=== PATIENT | female | born 1985 | race Caucasian/White ===

== ENCOUNTER 2021-05-07 06:04 | Day surgery (SDC) | payer BC ==
[2021-04-30 16:52] LABS: BASOPHILS # (AUTO) 0.1 X10'3 (0-0.2); BASOPHILS % (AUTO) 1.3 % (0-1); EOSINOPHILS # (AUTO) 0.3 X10'3 (0-0.9); EOSINOPHILS % (AUTO) 3.5 % (0-6); LYMPHOCYTES # (AUTO) 2.2 X10'3 (1.1-4.8); LYMPHOCYTES % (AUTO) 29.8 % (21-51); MEAN CORPUSCULAR HEMOGLOBIN 26.8 PG (27.0-31.0); MEAN CORPUSCULAR HGB CONC 32.7 g/dL (33.0-36.5); MEAN CORPUSCULAR VOLUME 81.8 FL (78-98); MEAN PLATELET VOLUME 9.1 FL (7.4-10.4); MONOCYTES # (AUTO) 0.5 X10'3 (0-0.9); NEUTROPHILS # (AUTO) 4.3 X10'3 (1.8-7.7); NEUTROPHILS % (AUTO) 58.4 % (42-75); PRE OP HEMATOCRIT 37.9 % (35.0-45.0); PRE OP HEMOGLOBIN 12.4 g/dL (12.0-16.0); PRE OP PLATELET COUNT 246 X10'3 (140-440); RED BLOOD COUNT 4.64 X10'6 (4.20-5.60); RED CELL DISTRIBUTION WIDTH 14.7 % (11.5-14.5)
[2021-04-30 17:00] LABS: PARTIAL THROMBOPLASTIN TIME 25 SECONDS (22-32); PRE OP PROTIME 10.3 SECONDS (9.0-12.0)
[2021-04-30 17:01] LABS: ALBUMIN/GLOBULIN RATIO 1.1 (1.1-1.5); ALKALINE PHOSPHATASE 56 IU/L (46-116); BLOOD UREA NITROGEN 10 MG/DL (7-18); BUN/CREATININE RATIO 11.8 (6.6-38.0); CALCIUM 8.6 MG/DL (8.5-10.1); CHLORIDE 106 MMOL/L (99-107); CREATININE 0.85 MG/DL (0.40-0.90); PRE OP ALT 26 U/L (30-65); PRE OP ANION GAP 10 (8-16); PRE OP AST 25 U/L (10-37); PRE OP BILIRUB, TOTAL 0.4 MG/DL (0.0-1.0); PRE OP GLUCOSE 104 MG/DL (70-104); PRE OP POTASSIUM 3.9 MMOL/L (3.4-5.1); PRE OP SODIUM 145 MMOL/L (135-145); TOTAL PROTEIN 7.5 G/DL (6.4-8.2); eGFR 77 ML/MIN
[2021-04-30 18:20] LABS: HCG SERUM QL NEGATIVE
[2021-05-07] VITALS (12 sets, daily range): BP systolic 117–139; BP diastolic 73–96
[~2021-05-07] VITALS: Ht 172.7 cm; Wt 91.8 kg
[~2021-05-07 06:04] MED LIST: ALBU8HFA; CETI-90 PO; albuterol 2.5 MG/3 ML nebule NEB PRN; diazepam 5mg tablet PO PRN; famotidine 20mg tablet PO ONE; ringers solution, lacted 1,000 ML IV SCH
[2021-05-07] MEDS: oxymetazoline 15 ML nasal spray NS PRN ×2 (06:55→12:45)
[2021-05-07] MEDS ORDERED: cocaine 4% topical solution 4ml bottle ONE (07:18)
[2021-05-07] MEDS ORDERED: methylPREDNISolone acetate 80mg/ml inj**IM only ONE (07:19)
[2021-05-07] MEDS ORDERED: LIDOcaine 1% W/epiNEPHrine 1:100,000 20ml vial ONE (07:19)
[2021-05-07] MEDS ORDERED: mupirocin 2% ointment 22GM ONE (07:20)
[2021-05-07] MEDS ORDERED: cefTAZidime 1gm inj ONE (07:20)
[2021-05-07] MEDS ORDERED: oxymetazoline 15 ML nasal spray NS ONE (07:21)
[2021-05-07] MEDS ORDERED: ondansetron/PF 4mg/2ml inj IV PRN (08:05)
[2021-05-07] MEDS ORDERED: labetalol 20mg/4ml (5mg/ml) syringe IV PRN (08:05)
[2021-05-07] MEDS ORDERED: ringers solution, lacted 1,000 ML IV SCH (08:05)
[2021-05-07] MEDS ORDERED: morphine 4 MG/ML inj SYRINge IV PRN (08:05)
[2021-05-07] MEDS ORDERED: morphine 2 MG/ML inj. syringe IV PRN (08:05)
[2021-05-07] MEDS ORDERED: fentaNYL/PF 50MCG/1 ML 2ML syringe IV PRN ×2 (08:05)
[2021-05-07] MEDS ORDERED: hydrALAZINE 20mg/ml inj. IV PRN (08:05)
[2021-05-07] MEDS ORDERED: sevoflurane 250ml liquid IH ONE (08:12)
[2021-05-07] MEDS ORDERED: fentaNYL/PF 50MCG/1 ML 2ML syringe ONE ×2 (08:14→09:06)
[2021-05-07] MEDS ORDERED: midazolam 1 mg/ML 2ml injection ONE (08:14)
[2021-05-07] MEDS ORDERED: ondansetron/PF 4mg/2ml inj ONE (08:26)
[2021-05-07] MEDS ORDERED: LIDOcaine 2% (20mg/ml) 5ml vial ONE (08:26)
[2021-05-07] MEDS ORDERED: propofol inj 20 ML IV ONE (08:26)
[2021-05-07] MEDS ORDERED: dexamethasone sod phosphate 4mg/ml inj. ONE (08:26)
--- NOTE | 2021-05-07 10:08 | NUR ---
Received from OR via [facility], accompanied by Anesthesiologist DR SALDANA and report given by Anesthesiologist. PT DROWSY, DENIES PAIN AND NAUSEA. BILAT COTTONNOIDS IN NARES, NO DRAINAGE NOTED. Addendum: 05/07/21 at 1030 by Holley Vazquez RN Amended: Links added.
[2021-05-07] MEDS ORDERED: salt irrigation nasal spray 45 ML SPRAY NS PRN (10:30)
[2021-05-07] MEDS ORDERED: acetaminophen 1,000mg/100ml IV 100 ML IV ONE (11:20)
--- NOTE | 2021-05-07 12:08 | NUR ---
PT'S HEADACHE IS MUCH IMPROVED, NAUSEA RESOLVED. PT UP AND ABLE TO AMBULATE SAFELY, D/C INSTRUCTIONS GIVEN AND GONE OVER W/PT AND PTS WHO VERBALIZED UNDERSTANDING. PT D/CD TO HOME VIA W/C TO PRIVATE VEHICLE W/O INCIDENT. Addendum: 05/07/21 at 1225 by Holley Vazquez RN Amended: Links added.
== END 2021-05-07 12:08 | disposition home or self-care (01) ==
LOC: PAS 06:04
PROVIDERS: ATTEND Otolaryngology
DX: J34.2 Deviated nasal septum (principal); J32.8 Other chronic sinusitis; J34.89 Other specified disorders of nose and nasal sinuses; J34.3 Hypertrophy of nasal turbinates; J45.909 Unspecified asthma, uncomplicated; F41.9 Anxiety disorder, unspecified; E66.9 Obesity, unspecified; Z68.30 Body mass index [BMI] 30.0-30.9, adult; F17.290 Nicotine dependence, other tobacco product, uncomplicated; Z20.822 Contact with and (suspected) exposure to COVID-19; Z79.899 Other long term (current) drug therapy; Z79.01 Long term (current) use of anticoagulants; Z90.49 Acquired absence of other specified parts of digestive tract; Z98.890 Other specified postprocedural states; Z72.89 Other problems related to lifestyle; Z88.5 Allergy status to narcotic agent; Z88.8 Allergy status to other drugs, medicaments and biological substances
CPT/HCPCS: 30140; 30520; 31240; 31254; 31256; 36415; 61782; 80053; 82948; 84703; 85025; 85576; 85610; 85730; 87635; A6402; C9250; C9803; J0131; J0713; J1040; J1100; J2001; J2250; J2405; J2704; J3010; J7040; J7120; U0003; U0005; Z7506; Z7508; Z7512; A4618; A7000